=== PATIENT | female | born 1945 | race Two or more races ===

== ENCOUNTER 2018-05-13 20:57 | Emergency (ER) | payer MEDICAID ==
[~2018-05-13] VITALS: Ht 157.5 cm; Wt 63.5 kg
[2018-05-13 20:59] VITALS: BP 149/86
[2018-05-13] MEDS ORDERED: LIDOCAINE 1% INJ 50 ML MDV IJ ONE (22:48)
== END 2018-05-13 23:15 | disposition home or self-care (01) ==
LOC: ER 20:57
DX: L02.512 Cutaneous abscess of left hand (principal); I10 Essential (primary) hypertension
CPT/HCPCS: 73140-TC; A4606; J3490; Z7610